=== PATIENT | male | born 1995 | race Caucasian/White ===

== ENCOUNTER 2024-11-13 20:40 | Emergency (ER) | payer MEDICARE, MEDICAID ==
[2024-11-13] MEDS: Lidocaine 1% with EPINEPHrine 1:100,000 20 ML MDV INJECT ONE (22:36)
== END 2024-11-14 00:16 | disposition home or self-care (01) ==
LOC: JP.ED 20:40
DX: S01.81XA Laceration without foreign body of other part of head, initial encounter (principal); Z88.0 Allergy status to penicillin; W18.39XA Other fall on same level, initial encounter; Y93.89 Activity, other specified
CPT/HCPCS: 12013; 70450; 72125; 76377; 99283; 99284; J2004